=== PATIENT | female | born 1995 | race Caucasian/White ===

== ENCOUNTER 2017-01-01 00:57 | Emergency (ER) | payer BC ==
[2017-01-01] MEDS ORDERED: ONDANSETRON HCL/PF 2 MG/ML VIAL ONE (01:07)
[2017-01-01] MEDS ORDERED: NORMAL SALINE 1,000 ML IV ONE (01:08)
[2017-01-01] MEDS ORDERED: ONDANSETRON HCL/PF 2 MG/ML VIAL IV ONE (01:08)
--- NOTE | 2017-01-01 01:24 | ERNOTE ---
Medical Problem HPI - General Chief Complaint: Alcohol Intoxication Time Seen by Provider: 01/01/17 01:13 Source: patient Exam Limitations: intoxication - Immun/Allergies/Home Medications Immunizations: IMMUNIZATION HX Immunizations Up to Date Yes Allergies/Adverse Reactions: Allergies No Known Allergies Allergy (Unverified 01/01/17 01:05) Home Medications: HOME MEDICATIONS NK [No Home Medication] 01/01/17 [Last Taken Unknown] - History of Present History Narrative: father states he and his daughter were at a cousins wedding. He states "she only had a few wine spritzers". As he was taking her home she vomited on him and was extremely obtunded so he brought her to the ED Timing: getting worse Severity: severe Review of Systems - Review of Systems Constitutional: Absent: recent illness Gastrointestinal/Abdominal: Present: nausea, vomiting Neurological: Present: emotional problems - Grandmother recently Psych: Present: depressed - Patient's Past Medical History Patient History - Medical: No pertinent hx Patient History - Cardiac/Respiratory: No pertinent hx Patient History - Cancer: No Hx of Cancer Patient History - Surgical Procedures: No surgical history - Social History Living Situations: home Smoking Status: Never smoker Alcohol Use: occasionally Drug Use: none - Immunizations Immunizations Up to Date: Yes Physical Exam - Physical Exam General Appearance: Present: other - obtunded Head Exam: Present: normal inspection, no evidence of injury Eye Exam: Normal inspection: bilateral, PERRL: bilateral Ears, Nose, Throat: Present: normal ENT inspection Neck: Present: normal inspection, supple, full range of motion Respiratory: Present: no respiratory distress, no accessory muscle use, lungs clear Cardiovascular/Chest: Present: regular rate, rhythm, no murmur Gastrointestinal/Abdominal: Present: normal bowel sounds, nontender Extremity Exam: Present: normal inspection, normal range of motion, no edema Neurological Exam: Present: other - obtunded, responds to pain, occasionally responds to verbal/mild tactile stimuli Skin Exam: Present: normal color, warm/dry ED Progress - Results and Orders Patient's Lab Results:: I have reviewed the patient's lab results. Results and Orders: Laboratory Tests 01/01/17 01/01/17 01/01/17 01:20 01:20 01:35 WBC 6.2 Hgb 12.7 Hct 37.4 Plt Count 204 Sodium 137 Potassium 3.4 Chloride 102 Carbon Dioxide 24.5 Anion Gap 13.9 H BUN 6 Creatinine 0.81 Est GFR (Non-Af Amer) 97 Random Glucose 138 H Calcium 8.0 Total Bilirubin 0.2 AST 18 ALT 26 Alkaline Phosphatase 71 Total Protein 7.2 Albumin 4.0 Urine Color Urine Appearance Urine pH Ur Specific [place] Urine Protein Urine Glucose (UA) Urine Ketones Urine Blood Urine Nitrate Urine Bilirubin Urine Urobilinogen Ur Leukocyte Esterase Urine RBC Urine WBC Ur Epithelial Cells Urine Bacteria Urine Culture Comments Urine Opiates Screen Negative Barbiturate Screen Negative Ur Phencyclidine Scrn Negative Urine Amphetamine Negative U Benzodiazepines Scrn Negative Urine Cocaine Screen Negative Urine Marijuana (THC) Negative Ethyl Alcohol 221.0 H 01/01/17 01:37 WBC Hgb Hct Plt Count Sodium Potassium Chloride Carbon Dioxide Anion Gap BUN Creatinine Est GFR (Non-Af Amer) Random Glucose Calcium Total Bilirubin AST ALT Alkaline Phosphatase Total Protein Albumin Urine Color Colorless Urine Appearance Clear Urine pH 5.5 Ur Specific [place] <=1.005 Urine Protein Negative Urine Glucose (UA) Negative Urine Ketones Negative Urine Blood Negative Urine Nitrate Negative Urine Bilirubin Negative Urine Urobilinogen Normal Ur Leukocyte Esterase Negative Urine RBC None seen Urine WBC None seen Ur Epithelial Cells 0-5 Urine Bacteria None seen Urine Culture Comments No culture indicated Urine Opiates Screen Barbiturate Screen Ur Phencyclidine Scrn Urine Amphetamine U Benzodiazepines Scrn Urine Cocaine Screen Urine Marijuana (THC) Ethyl Alcohol - Vital Signs Patient's Vital Signs:: I have reviewed the patient's vital signs. Vital Signs: Vital Signs 01/01/17 01/01/17 00:59 01:11 Temperature 36.1 C L Pulse Rate 96 107 H Respiratory 18 18 Rate Blood Pressure 109/59 109/68 O2 Sat by Pulse 97 98 Oximetry - Progress/Reassessment Chief Complaint: Alcohol Intoxication Progress Note-Subjective: 01/01/17 02:10 Pt awake and alert and oriented. Discussed ETOH use at her age and the dangers. Neuro intact. coordination still somewhat off but improving. No nausea at this time Departure - Departure Clinical Impression: Alcohol intoxication Qualifiers: Complication of substance-induced condition: uncomplicated Qualified Code(s): F10.920 - Alcohol use, unspecified with intoxication, uncomplicated Disposition: Home self-care Condition: Fair Instructions: Nausea, Adult, Alcohol Intoxication
[2017-01-01 01:29] LABS: Hematocrit 37.4 % (37.0-47.0); Hemoglobin 12.7 gm/dL (12.5-16.0); Mean Cell Volume 86.6 fl (78-100); Mean Corpuscular Hemoglobin 29.4 pg (27-31); Mean Platelet Volume 11.7 fl (6.0-9.5); Neutrophil # 3.8 K/mm3 (1.3-6.0); Neutrophil % 61.2 % (42-75.0); Platelet Count 204 K/mm3 (150-450); Red Blood Count 4.32 M/mm3 (4.2-5.4); Red Cell Distribution Width 12.4 % (11.5-14.0); White Blood Count 6.2 K/mm3 (4.0-10.5)
[2017-01-01 01:38] LABS: BUN/Creatinine Ratio 7.4 (9.0-21.6); Bilirubin, Total 0.2 mg/dL (0.0-1.1); Ca. Corrected For Albumin 7.7 mg/dL (8.4-10.2); Carbon Dioxide 24.5 mmol/L (24-32.6); Potassium 3.4 mmol/L (3.4-4.6); Total Protein 7.2 gm/dL (6.2-8.2)
[2017-01-01 01:41] LABS: Urine Bilirubin Negative (NEGATIVE); Urine Blood Negative /ul (NEGATIVE); Urine Ketone Negative (NEGATIVE); Urine Nitrite Negative (NEGATIVE); Urine Protein Negative (NEGATIVE); Urine Specific Gravity <=1.005 SP.GR. (1.005-1.010); Urine Urobilinogen Normal (NORMAL); Urine pH 5.5 pH (5.0-7.0)
[2017-01-01 01:42] LABS: Urine Appearance Clear; Urine Bacteria None Seen; Urine Color Colorless; Urine RBC None Seen /hpf (0-5); Urine WBC None Seen /hpf (0-5)
[2017-01-01 01:43] LABS: Anion Gap 13.9 mmol/L (6.8-13.8)
[2017-01-01 01:47] LABS: Cocaine Ur Negative (NEGATIVE); Urine Barbiturate Negative (NEGATIVE); Urine Benzodiazepines Negative (NEGATIVE); Urine Opiates Negative (NEGATIVE); Urine PCP Negative (NEGATIVE); Urine THC Negative (NEGATIVE)
[2017-01-01 02:17] VITALS: BP 110/71
== END 2017-01-01 02:31 | disposition home or self-care (01) ==
LOC: ER 00:57
PROC: 0T9B7ZZ Drainage of Bladder, Via Natural or Artificial Opening (ICD-10-PCS; principal; 2017-01-01)
DX: F10.920 Alcohol use, unspecified with intoxication, uncomplicated (principal)
CPT/HCPCS: 36415; 51701; 80053; 80307; 81001; 84703; 85025; 87086; 94760; 96374; 99283; G0481; J2405